=== PATIENT | female | born 1945 | race Two or more races ===

== ENCOUNTER 2021-04-28 20:00 | Inpatient (IN) | payer MEDICARE, OTHER ==
[~2021-04-28] VITALS: Ht 165.1 cm; Wt 68.0 kg
--- NOTE | 2021-04-28 20:30 | NUR ---
NO BEDS AVAILABLE IN THE ER. PLACED IN HALLWAY WITH RA.
[2021-04-28] MEDS ORDERED: GLIM2TAB31 PO (20:42)
[2021-04-28] MEDS ORDERED: CLOP75TA15 PO (20:42)
[2021-04-28] MEDS ORDERED: CARV6.252 PO (20:42)
[2021-04-28] MEDS ORDERED: NAPR-1164 PO (20:42)
[2021-04-28] MEDS ORDERED: DILT180C53 PO (20:42)
[2021-04-28] MEDS ORDERED: ATOR20TA PO (20:42)
[2021-04-28] MEDS ORDERED: SITA50TA PO (20:42)
[2021-04-28] MEDS ORDERED: ASPI81TA31 PO (20:42)
[2021-04-28] MEDS ORDERED: IV NS 1000 ML 1,000 ML IV ONE (20:45)
[2021-04-28 20:57] LABS: PLATELET COUNT (AUTO) 260 K/uL (179-408)
[2021-04-28 21:00] LABS: HEMATOCRIT 15.4 % (31.2-41.9)
[2021-04-28 21:08] LABS: CARBON DIOXIDE 32 mmol/L (21-32); CHLORIDE 103 mmol/L (98-107); CREATININE 0.8 mg/dL (0.6-1.3); GLUCOSE 156 mg/dL (74-106); POTASSIUM 3.7 mmol/L (3.5-5.1); UREA NITROGEN, BLOOD 31 mg/dL (7-18)
[2021-04-28 21:20] LABS: ALANINE AMINOTRANSFERASE 12 U/L (14-59); ALKALINE PHOSPHATASE 38 U/L (50-136); ASPARTATE AMINOTRANSFERASE 15 U/L (15-37); BILIRUBIN,DIRECT < 0.1 mg/dL (0.0-0.2); BILIRUBIN,TOTAL 0.2 mg/dL (0.2-1.0)
[2021-04-28] MEDS ORDERED: PANTOPRAZOLE SODIUM 40 MG VIAL IV ONE (21:30)
--- NOTE | 2021-04-28 21:41 | NUR ---
BED AVAILABLE. PATIENT PLACED IN ROOM 4B.
--- NOTE | 2021-04-28 21:42 | NUR ---
PAGED EPIC PANEL HEAD WAITRESS, WAITING FOR DR CARPIO TO CALL BACK.
--- NOTE | 2021-04-28 21:48 | NUR ---
[facility]att forrest in [facility] - 04/29/21 at [id number] DALY SPEAKING WITH DR CARPIO WHO ACCEPTED PATIENT TO TELE.
--- NOTE | 2021-04-28 21:50 | NUR ---
DR DALY SPEAKING WITH DR CARPIO WHO ACCEPTED PATIENT TO TELE-TD.
[2021-04-28] MEDS ORDERED: PANTOPRAZOLE SODIUM 40 MG VIAL ONE (21:59)
[2021-04-28] MEDS ORDERED: FUROSEMIDE 20 MG/2 ML VIAL IV ONE (22:00)
[2021-04-28] MEDS ORDERED: ONDANSETRON 4 MG/2 ML VIAL IV PRN (22:00)
[2021-04-28] MEDS ORDERED: MORPHINE SULFATE 2 MG/1 ML DISP.SYRIN IV PRN (22:00)
[2021-04-28] MEDS ORDERED: ACETAMINOPHEN 650 MG SUPP.RECT RC PRN (22:00)
[2021-04-28] MEDS ORDERED: POTASSIUM CHLORIDE 20 MEQ in IV D5/ 0.9% NACL 1,000 ML IV PRN (22:00)
[2021-04-28 22:31] LABS: IRON, SERUM 33 ug/dL (50-175)
[2021-04-28 22:37] LABS: BAND % (MANUAL) 1 % (0-10); EOSINOPHILS % (MANUAL) 2 % (0-8); LYMPHOCYTES % (MANUAL) 34 % (20-40); MONOCYTES % (MANUAL) 4 % (2-10); NEUTROPHILS % (MANUAL) 59 % (42-75)
--- NOTE | 2021-04-28 22:57 | NUR ---
Pt provided urine, no in and out cath used
[2021-04-28 23:18] LABS: *BILIRUBIN,URIN NEGATIVE (NEGATIVE); *BLOOD, URINE 1+ (NEGATIVE); *CLARITY,URINE CLOUDY (CLEAR); *COLOR,URINE YELLOW (YELLOW); *KETONES,URINE NEGATIVE (NEGATIVE); *UROBILINOGEN,URINE 0.2 E.U./dl (NORMAL); LEUKOCYTE ESTERASE ,URINE 2+ (NEGATIVE); NITRITE, URINE POSITIVE (NEGATIVE); UGLUCOSE NEGATIVE (NEGATIVE)
[2021-04-28 23:37] LABS: BACTERIA,URINE MANY /HPF (NONE SEEN); RBC,URINE 20-50 /HPF (0-3); SQUAMOUS EPITHELIAL CELL,UR MODERATE /HPF (NONE SEEN); WBC,URINE TNTC /HPF (0-3)
--- NOTE | 2021-04-29 07:16 | NUR ---
Report given to ernesto quiroz
[2021-04-29] MEDS ORDERED: PANTOPRAZOLE SODIUM 40 MG VIAL IV SCH (09:00)
--- NOTE | 2021-04-29 09:10 | NUR ---
U/S tech at bedside. Pt in stable condition, in no acute distress at this time. Daughter called, states being on her way. Spoke with pt at bedside via hand-held phone.
[2021-04-29] MEDS ORDERED: PANTOPRAZOLE SODIUM 40 MG VIAL ONE (09:21)
[2021-04-29 09:39] LABS: HEMATOCRIT 23.7 % (31.2-41.9); MEAN CORPUSCULAR VOLUME 84.9 fL (75.5-95.3); PLATELET COUNT (AUTO) 231 K/uL (179-408)
[2021-04-29 10:21] LABS: BILIRUBIN,TOTAL 0.6 mg/dL (0.2-1.0); CREATININE 0.8 mg/dL (0.6-1.3); MAGNESIUM 1.7 mg/dL (1.8-2.4); PHOSPHOROUS 3.8 mg/dL (2.5-4.9); POTASSIUM 3.7 mmol/L (3.5-5.1); TOTAL PROTEIN, SERUM 6.3 g/dL (6.4-8.2)
[2021-04-29 10:25] LABS: THYROID STIMULATING HORMONE 3.045 mIU/mL (0.358-3.740)
--- NOTE | 2021-04-29 10:55 | NUR ---
Pt in stable condition, in no acute distress, with no complaints of pain at this time. Pt laying down, states daughter should be arriving soon.
--- NOTE | 2021-04-29 12:07 | NUR ---
Daughter at bedside. Requesting to take pt home AMA. Dr. Hensley notified.
--- NOTE | 2021-04-29 12:15 | NUR ---
Saline lock D/C, clear and intact. Coban placed. Pt states understanding, will remove pressure in 15mins. Reports and labs provided to daughter and pt.
--- NOTE | 2021-04-29 12:18 | NUR ---
CD not provided. Daughter unable to wait. States she will bring mother back on Sunday to medical records to request CD if needed. Pt left AMA.
[2021-04-29 12:19] VITALS: BP 112/57
[2021-04-29] MEDS ORDERED: INSULIN REGULAR, HUMAN 300 UNIT/3 ML VIAL SQ PRN (14:45)
[2021-04-29] MEDS ORDERED: DEXTROSE 50% 50 ML DISP.SYRIN IV PRN (14:45)
[2021-04-29] MEDS ORDERED: BLOOD SUGAR DIAGNOSTIC 1 EACH STRIP VI SCH (16:30)
== END 2021-04-29 13:30 | disposition left against medical advice (07) | DRG 378 ==
LOC: ER 20:06 → TRANSITION 23:20
PROVIDERS: ADMIT Nurse Practitioner Acute Care; ATTEND Nurse Practitioner Acute Care
PROC: 30233N1 Transfusion of Nonautologous Red Blood Cells into Peripheral Vein, Percutaneous Approach (ICD-10-PCS; principal; 2021-04-29)
DX: K92.2 Gastrointestinal hemorrhage, unspecified (principal); E44.1 Mild protein-calorie malnutrition; D50.0 Iron deficiency anemia secondary to blood loss (chronic); E88.09 Other disorders of plasma-protein metabolism, not elsewhere classified; I25.10 Atherosclerotic heart disease of native coronary artery without angina pectoris; Z95.0 Presence of cardiac pacemaker; I48.91 Unspecified atrial fibrillation; E11.9 Type 2 diabetes mellitus without complications; Z20.822 Contact with and (suspected) exposure to COVID-19
CPT/HCPCS: 36415; 70030-TC; 71045; 83550; 83735; 84100; 84443; 85025; 85730; 86850; 86900; 86901; 86920; 87077; 87086; 93005; 93307; 97161; A4663; C9113; G0378; J1940; J3480; J7030; J7042; J7050; P9016